=== PATIENT | male | born 1995 | race Caucasian/White ===

== ENCOUNTER 2019-02-10 20:22 | Emergency (ER) | payer OTHER ==
--- NOTE | 2019-02-10 20:33 | ED Physician Documentation ---
General Adult - HISTORIAN Historian: patient - HPI Stated Complaint: rash x 3 days Chief Complaint: Allergic Reaction Onset: days ago (3) Timing: still present Severity: moderate Further Comments: yes (he states he started to have a rash a few days ago and he feels the rash is worse tonight he feels he has a lot of ragweed he walks through daily and he feels he has notice itching rash on legs and arms as well as chest with some mild swelling of eyes and itching) Last known Well Code/Unknown Code: Unknown - ROS CONST: no problems EYES/ENT: none CVS/RESP: none. denies: shortness of breath GI/: none MS/SKIN/LYMPH: rash NEURO/PSYCH: denies: headache - PAST HX Past History: none Surgeries/Procedures: none Immunizations: UTD Allergies/Adverse Reactions: Allergies Allergy/AdvReac Type Severity Reaction Status Date / Time No Known Allergies Allergy Verified 02/10/19 20:59 Home Medications: Ambulatory Orders Medication Instructions Recorded NK 02/10/19 - SOCIAL HX Smoking History: non-smoker Alcohol Use: none Drug Use: none - FAMILY HX Family History: No - REVIEWED ASSESSMENTS Nursing Assessment Reviewed: Yes Vitals Reviewed: Yes General Adult Physical Exam - PHYSICAL EXAM GENERAL APPEARANCE: no distress EENT: eye inspection normal, pharynx normal, no signs of dehydration NECK: normal inspection RESPIRATORY: no resp distress, chest non-tender CVS: reg rate & rhythm ABDOMEN: soft, normal bowel sounds, no distension BACK: normal inspection, no CVA tenderness SKIN: warm/dry, other (red patchy areas on bilateral upper legs right lower leg chest and eyes are slightly swollen and no shortness of breath . He has not had any OTC meds in relation to the symptoms ) EXTREMITIES: non-tender, normal range of motion, no evidence of injury, no edema NEURO: oriented X3, CN's nml as tested Discharge Clincal Impression: Allergic reaction Qualifiers: Encounter type: initial encounter Qualified Code(s): T78.40XA - Allergy, unspecified, initial encounter Referrals: Primary Doctor,No [Primary Care Provider] - 2 Days Comments: 1. Prednisone 20 mg take 1 by mouth daily x 5 days start after 5 pm on 02.11.2019 2. [id number] mg take 1 by mouth daily until hard freeze 3. Zantac 150 mg take 1 by mouth twice daily x 5 days 4. Benadryl as directed as needed for symptom relief - not given in ER he drove himself 5. When areas become warm they will increase in intensity 6. Follow up with PCP in 2-4 days 7. Return to ER for any increasing concerns Condition: Stable Disposition: 01 HOME, SELF-CARE Decision to Admit: NO Date of Decison to Admit: 02/10/19 Decision Time: 21:16
[2019-02-10] MEDS: LORATADINE 10 MG TABLET PO ONE (21:08)
[2019-02-10] MEDS: methylPREDNISolone ACETATE 80 MG/ML VIAL IM ONE (21:08)
[2019-02-10] MEDS: PANTOPRAZOLE SODIUM 40 MG TABLET.DR PO ONE (21:08)
[2019-02-10 21:30] VITALS: BP 121/75
== END 2019-02-10 21:18 | disposition home or self-care (01) ==
LOC: ED 20:22
DX: T78.40XA Allergy, unspecified, initial encounter (principal)
CPT/HCPCS: 96372; 99284; J1040